=== PATIENT | female | born 1930 | race Caucasian/White ===

== ENCOUNTER → 2016-12-16 | Outpatient (CLI) | payer MEDICARE | END | disposition home or self-care (01) | LOC: PCVCCLINIC 14:11 | PROVIDERS: ATTEND Internal Medicine Cardiovascular Disease | DX: I10 Essential (primary) hypertension (principal); I25.10 Atherosclerotic heart disease of native coronary artery without angina pectoris; I25.5 Ischemic cardiomyopathy; E78.00 Pure hypercholesterolemia, unspecified; R09.89 Other specified symptoms and signs involving the circulatory and respiratory systems; E04.1 Nontoxic single thyroid nodule | CPT/HCPCS: 80061; 93005; G0463 ==

== ENCOUNTER → 2017-04-07 | Outpatient (CLI) | payer MEDICARE | END | disposition home or self-care (01) | LOC: PCVCIMAG 08:49 | PROVIDERS: ATTEND Internal Medicine Cardiovascular Disease | DX: M79.605 Pain in left leg (principal) | CPT/HCPCS: 93926 ==

== ENCOUNTER → 2017-07-23 | Outpatient (CLI) | payer MEDICARE | END | disposition home or self-care (01) | LOC: PCVCCLINIC 13:08 | PROVIDERS: ATTEND Internal Medicine Cardiovascular Disease | DX: I25.10 Atherosclerotic heart disease of native coronary artery without angina pectoris (principal); I63.9 Cerebral infarction, unspecified; I10 Essential (primary) hypertension; I25.5 Ischemic cardiomyopathy; I73.9 Peripheral vascular disease, unspecified; E78.00 Pure hypercholesterolemia, unspecified; Z86.73 Personal history of transient ischemic attack (TIA), and cerebral infarction without residual deficits; Z90.710 Acquired absence of both cervix and uterus; Z88.8 Allergy status to other drugs, medicaments and biological substances | CPT/HCPCS: 80061; 93005; G0463 ==

== ENCOUNTER → 2017-09-29 | Outpatient (CLI) | payer MEDICARE ==
[~2017-09-29] MED LIST: REGADENOSON 0.4 MG/5 ML DISP.SYRIN. IV ONE
--- NOTE | 2017-09-29 09:56 | PCVCIMAG ---
APPROVED REPORT Study performed: 09/29/2017 07:53:51 EXAM: Comprehensive 2D, Doppler, and color-flow Echocardiogram Patient Location: Echo lab Status: routine BSA: 1.97 HR: 83 bpmBP: 136/80 mmHg Rhythm: NSR Other Information Study Quality: Adequate Risk Factors: Cardiac Risk Factors: HTN Indications CAD Ischemic Cardiomyopathy, RCA stent 2D Dimensions LVEF(%): 50.09 (>50%) IVSd: 12.70 (7-11mm)LVOT Diam: 21.31 (18-24mm) LVDd: 36.24 mm PWd: 12.76 (7-11mm) LVDs: 27.24 (25-40mm) Left Atrium: 38.91 (27-40mm) LV Single Plane 4CH: 53.55 % LV Single Plane 2CH: 52.16 %Niño's LVEF: 52.85 % Biplane EF: 52.2 % Volumes Left Atrial Volume (Systole) Single Plane 4CH: 80.52 mLSingle Plane 2CH: 95.36 mL LA ESV Index: 47.00 mL/m2 Aortic Valve AoV Peak Jeff.: 1.60 m/s AO Peak Gr.: 10.24 mmHgLVOT Max P.07 mmHg LVOT Max V: 0.88 m/s CHRISTINA Vmax: 1.95 cm2 AI Vmax: 3.54 m/s AI Cass: 3.10 m/s2 AI PHT: 331.28 ms Mitral Valve MV Peak Gr.: 13.21 mmHg MV Mean Gr.: 5.66 mmHgE/A Ratio: 0.8 MV Decel. Time: 355.73 ms MV E Max Jeff.: 1.31 m/s MV A Jeff.: 1.74 m/s MV Max Jeff.: 1.82 m/s MV Mean Jeff.: 1.12 m/s MV VTI: 468.57 mm MV PHT: 121.52 ms MVA (PHT): 1.81 cm2 IVRT: 79.58 ms Pulmonary Valve PV Peak Jeff.: 0.80 m/sPV Peak Gr.: 2.56 mmHg Pulmonary Vein P Vein S: 0.34 m/sP Vein A: 0.31 m/s P Vein D: 0.41 m/sP Vein A Dur.: 124.6 msec P Vein S/D Ratio: 0.83 Tricuspid Valve TR Peak Jeff.: 2.68 m/s TR Peak Gr.: 28.76 mmHg Left Ventricle The left ventricle is normal size. There is normal LV segmental wall motion. Mild concentric left ventricular hypertrophy. Left ventricular systolic function is borderline normal. 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 LVEF is 50-55%. Grade I - abnormal relaxation pattern. Right Ventricle The right ventricle is normal size. The right ventricular systolic function is normal. Atria Left atrium is moderately dilated. The right atrium size is normal. Aortic Valve Moderately calcified aortic leaflets without stenosis. Mild to moderate aortic regurgitation. There is no aortic valvular stenosis. Mitral Valve Mitral annular calcification is moderate. The mitral valve leaflets are moderately calcified. Mild mitral regurgitation. Mild mitral stenosis. Calculated mitral valve area is 1.8 cm2 with a mean pressure gradient of 5.7 mmHg. Tricuspid Valve The tricuspid valve is normal in structure. Mild tricuspid regurgitation with PAP of 36 mmHg. Pulmonic Valve The pulmonary valve is normal in structure. Trace pulmonic regurgitation. Great Vessels The aortic root is normal in size. IVC is normal in size and collapses with >50% inspiration Pericardium There is no pericardial effusion. <Conclusion> The left ventricle is normal size. Mild concentric left ventricular hypertrophy. LVEF is 50-55%. Grade I - abnormal relaxation pattern. Left atrium is moderately dilated. Moderately calcified aortic leaflets without stenosis. Mild to moderate aortic regurgitation. There is no aortic valvular stenosis. Mild mitral regurgitation. Mild tricuspid regurgitation with PAP of 36 mmHg. There is no pericardial effusion.
--- NOTE | 2017-09-29 18:27 | PCVCIMAG ---
APPROVED REPORT Exam: Nuclear Stress Test Indication: CAD, ICM Patient Location: Out-Patient Stress Nurse: Liz Starkey RN, DINAH Maher Tech:Zena Radha [facility] Ht: 5 ft 6 in Wt: 200 lbs BSA: 2.00 m2 HR: 86 bpm BP: 158/81 mmHg BMI: 32.2 Rhythm: SR Medical History Medical History: Age, HTN, CVD, Hyperlipidemia Medications: Atorvastatin, Plavix, Metoprolol Allergies: Crestor Previous Cardiac Procedures: PCI Pretest Chest Pain Characteristics: No chest pain Exercise History: Sedentary Physical Disabilities: Uses a cane for ambulation Meds Held (24 hrs): Metoprolol NM EXAM: Myocardial Perfusion REST/STRESS Imaging Protocol: Rest Tc-99m/Stress Tc-99m 1 day Resting Data Rest SPECT myocardial perfusion imaging was performed in supine position 45 minutes following the intravenous injection of 10.2 mCi of Tc-99m Sestamibi. Time of rest injection: 0840 Date: 09/29/2017 Administration Route: IV Administration Site: Right Arm Pharmacologic Stress Pharmacologic stress test was performed by injecting Regadenoson 0.4 mg IV push followed by the intravenous injection of 32.3 mCi of Tc-99m Sestamibi. Time of stress injection: 1000 Date: 09/29/2017 Administration Route: IV Administration Site: Right Arm Gated Stress SPECT was performed 45 minutes after stress injection. The images were gated to evaluate regional wall motion and calculate left ventricular ejection fraction. Study Quality Study: Good Study Data Post stress, the left ventricular ejection was 79%.. SSS: 4 SRS: 9 SDS: 0 TID = 0.95. 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 Small sized area of moderate reversible ischemia involving the apical inferolateral left ventricle. 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 Small sized area of moderate reversible ischemia involving the apical inferolateral left ventricle. Post stress, the left ventricular ejection was 79%.. No prior study available for comparison. Interpreted by: Dave Alvarado MD Electronically Approved: 09/29/2017 17:07:15 Stress Test Details Stress Test: Pharmacologic stress testing performed using 0.4 mg of regadenoson per 5 mL given IV over 10 seconds. Reason for pharmacologic stress test: physical limitation. HR Resting HR: 86 bpmMax Heart Rate (APMHR): 131 bpm Max HR Achieved: 95 bpmTarget HR (85% APMHR): 111 bpm % of APMHR: 72 Recovery HR: 100 bpm BP Resting BP: 158/81 mmHg Max BP: 152/69 mmHg ECG Resting ECG: Sinus Rhythm Stress ECG: Sinus Rhythm Recovery ECG: Sinus Rhythm Clinical Reason for Termination: Completed protocol Stress Symptoms: Dyspnea Exercise duration: 0 min 55 sec Symptoms resolved during recovery. Stress ECG Conclusion ECG: Non-ischemic <Conclusion> ECG: Non-ischemic
== END | disposition home or self-care (01) ==
LOC: PCVCIMAG 07:51
PROVIDERS: ATTEND Internal Medicine Cardiovascular Disease
DX: I11.0 Hypertensive heart disease with heart failure (principal); I08.3 Combined rheumatic disorders of mitral, aortic and tricuspid valves; I25.10 Atherosclerotic heart disease of native coronary artery without angina pectoris; I50.9 Heart failure, unspecified; R06.00 Dyspnea, unspecified; E78.5 Hyperlipidemia, unspecified; I25.5 Ischemic cardiomyopathy; Z95.5 Presence of coronary angioplasty implant and graft
CPT/HCPCS: 78452; 93017; 93306; A9500; J2785